=== PATIENT | male | born 1945 | race African-American/Black ===

== ENCOUNTER 2017-07-18 14:09 | Emergency (ER) | payer MEDICAID ==
[~2017-07-18] VITALS: Ht 175.3 cm; Wt 85.5 kg
[~2017-07-18 14:09] MED LIST: ERGO2000 PO; FIORICET PO; GLIP5TAB13 PO; LOSA25TA5 PO; MECL-77 PO; MTF1000T PO; SIMV20TA2 PO; TRAM50TA2 PO
[2017-07-18 14:15] VITALS: Ht 175.3 cm; Wt 85.5 kg
--- NOTE | 2017-07-18 15:49 | ERD ---
ER Documentation Chief Complaint Date/Time DATE: 07/18/17 TIME: 15:47 Chief Complaint headache and bilateral ear pain x 2 months HPI Patient is a 71-year-old male who has a history of diabetes and hypertension as well as high cholesterol complaining of headache. He has been seen here for this multiple times. He states he has had a bilateral headache on both sides of his head for over 3-4 months. He has no nausea or vomiting. No photosensitivity or changes to his vision. He takes Tylenol and Motrin at home but he states does not help. No chest pain or shortness of breath. No fever. No neck stiffness. No palpitations. ROS All systems reviewed and are negative except as per history of present illness. Medications Home Meds Active Scripts Acetamin/Butalbital/Caffeine* (Fioricet*) [id number] Tab, 1 TAB PO Q6H Y for PAIN, #15 TAB Prov:IVAN PFEIFFER PA-C 07/18/17 Acetamin/Butalbital/Caffeine* (Fioricet*) [id number] Tab, 1 TAB PO Q6H Y for PAIN, #10 TAB Prov:KAYLEE HINTON NP 10/16/16 Tramadol HCl (Tramadol HCl) 50 Mg Tablet, 50 MG PO Q4 Y for PAIN, #20 TAB Prov:JAYLEN BALDERAS PA-C 05/20/16 Meclizine Hcl* (Meclizine Hcl*) 25 Mg Tablet, 25 MG PO Q8H Y for vertigo, #30 TAB Prov:SCAR HICKEY 04/24/15 Reported Medications Ergocalciferol (Vitamin D2) (VITAMIN D2) 2,000 Unit Tablet, 2000 UNIT PO DAILY 04/24/15 Glipizide* (Glipizide*) 5 Mg Tablet, 5 MG PO AC BREAKFAST, TAB 04/24/15 Losartan Potassium* (Losartan Potassium*) 25 Mg Tablet, 25 MG PO DAILY, TAB 10/01/14 Simvastatin (Simvastatin) 20 Mg Tablet, 20 MG PO HS, TAB 10/01/14 Metformin* (Glucophage*) 1,000 Mg Tablet, 1000 MG PO BID, TAB 10/01/14 Allergies Allergies: Coded Allergies: No Known Allergy (Unverified , 10/15/16) PMhx/Soc History of Surgery: Yes (PROSTATE CA SX) Anesthesia Reaction: No Hx Neurological Disorder: No Hx Respiratory Disorders: No Hx Cardiac Disorders: Yes (HYPERLIPDEMIA ) Hx Psychiatric Problems: Yes (DEPRESSION ) Hx Miscellaneous Medical Probl: Yes (DM HTN, PROSTATE CA) Hx Alcohol Use: No Hx Substance Use: No Hx Tobacco Use: No FmHx Family History: diabetes Physical Exam Vitals Vital Signs Date Time Temp Pulse Resp B/P Pulse Ox O2 Delivery O2 Flow Rate FiO2 07/18/17 14:15 97.8 89 18 147/89 97 Physical Exam INITIAL VITAL SIGNS: Reviewed by me GENERAL: Awake, alert and oriented x 4, well appearing, nontoxic, speaking in full sentences. No acute distress HEAD: Atraumatic NECK: Supple. No masses. Full range of motion. No meningismus. No midline tenderness. EYES: EOMI. PERRL. EAR: No tenderness over the mastoids bilaterally. No exudates in the canals. TMs nonerythematous. THROAT: No tonilar erythema or edema. No exudates. Uvula midline. No kissing tonsils. RESPIRATORY: Clear to auscultation bilaterally. Symmetric chest wall rise. No wheezing or rales. No accessory muscle use. CV: Regular rate and rhythm. No murmurs, rubs, or gallops. EXTREMITIES: No clubbing or cyanosis. No edema. Moving all extremities normally. BACK: No midline tenderness to palpation. No step-offs. SKIN: Warm and dry. No rash or petechiae. NEUROLOGIC: Normal mental status and speech. Face is symmetric. Moves all extremities equally. Motor and sensory distally intact. Normal coordination. Ambulates with a strong steady gait. Finger to nose within normal limits, betting clerks strength 5 out of 5 bilaterally, rapid alternating movements within normal limits Results 24 hrs Laboratory Tests Test 07/18/17 15:57 Bedside Glucose 201mg/dL Current Medications Medications (Trade) Dose Ordered Sig/Kadeem Route PRN Reason Start Time Stop Time Status Last Admin Dose Admin Acetam/Butalbital/ Caffeine/Codeine (Fioricet/ Codeine) 1 cap ONCE ONCE PO 07/18/17 16:00 07/18/17 16:01 DC 07/18/17 15:54 Procedures/MDM 71-year-old male presents with headache. He has been seen here multiple times for this. The differential diagnosis includes but is not limited to subdural hematoma, epidural hematoma, intracerebral hemorrhage, occult trauma, CVA, meningitis, encephalitis, hypertension, tension, migraine, cluster, cervical spine disease, and others. Reviewed the case with Dr. Martin and we agreed a CT scan in. He was given Fioricet for his pain which she has gotten in the past with relief of his symptoms. Accu-Chek also ordered and was 201. Ct showed no acute abnormality. Pt dischaged with fiorcet as that has helped him in the past. recommened 2 day follow up with pcp and return to er for any concern or worsening sx. Departure Diagnosis: Primary Impression: Headache Condition: Stable IVAN PFEIFFER PA-C Jul 18, 2017 15:49
[2017-07-18] MEDS ORDERED: ACET/BUTAL/CAFF/CODEINE CAP PO ONE (16:00)
--- NOTE | 2017-07-18 16:51 | RADRPT ---
PROCEDURE: CT Brain without contrast. CLINICAL INDICATION: Headaches. Neurologic deficit TECHNIQUE: A CT of the brain was performed on multidetector high-resolution CT scanner utilizing a xial sections from the skull base through the vertex without contrast. One or more of the following dose reduction techniques were used: Automated exposure control, Adjustment of the mA and/or kV acc ording to patient size, and/or use of iterative reconstruction technique. DOSE: CTDI = 45 mGy and the DLP = 720 mGy-cm. COMPARISON: Head CT 05/20/2016 FINDINGS: Left middle cranial fossa is CSF density structure measures 4.0 x 4.5 cm with effacement of the left anterior temporal sulci, unchanged from prior. No acute intracranial hemorrhage or midline shift. P atchy hypoattenuation of the cerebral white matter is compatible with chronic microvascular ischemic changes. Vascular calcifications. Prominence of the cortical sulci and ventricles are related to mi ld cerebral volume loss. No significant opacification of the visualized paranasal sinuses or masto ids. Calcifications right orbit preseptal space and right periorbital/frontal scalp is unchanged fro m prior. IMPRESSION: No significant change. No acute intracranial hemorrhage or midline shift. Chronic microvascular disease and intracranial atherosclerosis. Left middle cranial fossa arachnoid cyst. RPTAT: AA .Alexander Pedraza MD, Date Time Electronically viewed and signed by .Alexander Pedraza MD, MD on 07/18/2017 16:51 .T/
[2017-07-18] MEDS ORDERED: FIORICET PO (16:57)
== END 2017-07-18 17:06 | disposition home or self-care (01) ==
LOC: FTE 14:09
DX: R51 Headache (principal); E11.9 Type 2 diabetes mellitus without complications; I10 Essential (primary) hypertension; Z79.84 Long term (current) use of oral hypoglycemic drugs; Z85.46 Personal history of malignant neoplasm of prostate
CPT/HCPCS: 70450; 82962; Z7502; Z7610

== ENCOUNTER 2018-02-01 15:34 | Emergency (ER) | END 2018-02-01 18:13 | disposition home or self-care (01) ==